=== PATIENT | female | born 1960 | race Caucasian/White ===

== ENCOUNTER 2016-08-16 11:10 | Inpatient (IN) | payer OTHER ==
[~2016-08-16] VITALS: Ht 154.9 cm; Wt 63.3 kg
[2016-08-16 12:55] LABS: HEMATOCRIT 43.7 % (36.0-46.0); MCH 33.9 PG (29.0-34.0); MCHC 33.6 G/DL (30.0-36.0); MCV 100.9 FL (83-99); MEAN PLAT.VOLUME 9.9 uM^3 (9.5-12.4); PLATELET COUNT 85 K/uL (156-360); RBC DIS.WIDTH-CV 11.9 % (11.8-14.6); RBC DIS.WIDTH-SD 44.1 % (39-53); RED BLOOD COUNT 4.33 M/uL (3.80-5.20); WHITE BLOOD COUNT 4.1 K/uL (4.1-10.2)
[2016-08-16 13:07] LABS: CHLORIDE 108 mEq/L (99-109); POTASSIUM 4.2 mEq/L (3.7-5.4); SODIUM 139 mEq/L (136-147)
[2016-08-16 13:09] LABS: GLUCOSE 100 mg/dL (70-99)
[2016-08-16 13:10] LABS: ANION GAP 10 MEQ/L (2-14)
[2016-08-16 13:12] LABS: GFR ESTIMATE (CALCULATED) > 59 mL/min/
[2016-08-16 13:13] LABS: UREA NITROGEN (BUN) 13 mg/dL (9-23)
[2016-08-16 13:18] LABS: TROP-I INTERPRETATION NEGATIVE; TROPONIN-I < 0.01 ng/mL (0.0-0.30)
[2016-08-16 14:49] VITALS: BP 138/90
[2016-08-16 15:12] VITALS: BP 184/98
[2016-08-16 18:32] LABS: TROP-I INTERPRETATION NEGATIVE; TROPONIN-I 0.01 ng/mL (0.0-0.30)
[2016-08-16 19:02] LABS: Estimated Average Glucose 91 mg/dL (70-123); HEMOGLOBIN A1c (GLYCOHEMOGLOB) 4.8 % HGB (Below 5.7)
[2016-08-16 20:28] VITALS: BP 157/95
[2016-08-17 00:14] VITALS: BP 190/100
[2016-08-17 00:29] VITALS: BP 189/108
[2016-08-17 00:56] LABS: TROP-I INTERPRETATION NEGATIVE; TROPONIN-I < 0.01 ng/mL (0.0-0.30)
[2016-08-17 03:55] VITALS: BP 162/94
[2016-08-17 07:50] LABS: HDL CHOLESTEROL 23 MG/DL (Desirable>=50); LDL CHOLESTEROL 107 mg/dL (Desirable<100); NON-HDL CHOLESTEROL 122 mg/dL (Desirable<160); TOTAL CHOLESTEROL 145 mg/dL (Desirable<200); TRIGLYCERIDES 77 MG/DL (Normal: <150)
[2016-08-17 08:05] VITALS: BP 160/95
[2016-08-17 11:53] VITALS: BP 156/88
[2016-08-17] MEDS ORDERED: LISINOPRIL5 MG PO (12:48)
[2016-08-17] MEDS ORDERED: ATORVASTATIN CA40 MG PO (12:48)
[2016-08-17] MEDS ORDERED: CLOPIDOGREL75 MG PO (12:48)
== END 2016-08-17 14:20 | disposition home or self-care (01) | DRG 65 ==
LOC: EME 11:10 → EDOF 13:20 → 5SOUTH 13:20
PROVIDERS: Emergency Medicine; Internal Medicine
DX: I63.9 Cerebral infarction, unspecified (principal); I16.1 Hypertensive emergency; F17.200 Nicotine dependence, unspecified, uncomplicated; F10.10 Alcohol abuse, uncomplicated; D69.6 Thrombocytopenia, unspecified; H53.8 Other visual disturbances; J44.9 Chronic obstructive pulmonary disease, unspecified; R29.810 Facial weakness
CPT/HCPCS: 70544; 70551; 80048; 80061; 81003; 83036; 84443; 84484; 85027; 93005; 93306; 93880; 99202; 99281; 99285; J1650